=== PATIENT | male | born 1955 | race Caucasian/White ===

== ENCOUNTER → 2023-12-27 08:56 | Outpatient (REF) | payer BC, SELFPAY ==
[2023-12-27 12:21] LABS: ALT (SGPT) 22 U/L (0-50); AST (SGOT) 20 U/L (17-59); Albumin 4.2 g/dl (3.5-5.0); Alkaline Phosphatase 96 U/L (38-126); Blood Urea Nitrogen 32 mg/dl (9-20); Calcium 9.6 mg/dl (8.4-10.2); Carbon Dioxide 24 mmol/L (22-30); Chloride 105 mmol/L (98-107); Glucose 172 mg/dl (70-99); HDL Cholesterol 37 mg/dl; Sodium 137 mmol/L (135-145); Total Bilirubin 1.1 mg/dl (0.2-1.3); Total Cholesterol 202 mg/dl (50-199); Total Protein 7.2 g/dl (6.3-8.2); eGFR 46.06
[2023-12-27 12:22] LABS: LDL Cholesterol, Calculated 62 mg/dl; Triglyceride 517 mg/dl (10-149); Very Low Density Lipoprotein 103 mg/dl (0-30)
[2023-12-27 12:23] LABS: Glycohemoglobin (HgbA1c) 7.8 % (4.0-5.6)
[2023-12-27 12:58] LABS: Microalbumin, Random Urine 7.5 mg/dl (0.6-1.7); Microalbumin/creatinine Ratio 92.7 mg/g
[2023-12-27 13:01] LABS: LDL Cholesterol, Direct 64 mg/dl
== END ==
LOC: HWLAB 08:56
PROVIDERS: ATTENDING PHYSICIAN Family Medicine
DX: I10 Essential (primary) hypertension (principal); E11.22 Type 2 diabetes mellitus with diabetic chronic kidney disease; E78.00 Pure hypercholesterolemia, unspecified
CPT/HCPCS: 36415; 80053; 80061; 82043; 82570; 83036; 83721

== ENCOUNTER → 2024-01-23 06:48 | Outpatient (REF) | payer BC, SELFPAY | LOC: MRI 06:48 | PROVIDERS: ATTENDING PHYSICIAN Physician Assistant Surgical; FAMILY PHYSICIAN Family Medicine | DX: M25.552 Pain in left hip (principal); M25.562 Pain in left knee | CPT/HCPCS: 73721 ==

== ENCOUNTER → 2024-01-24 06:33 | Outpatient (REF) | payer BC, SELFPAY | LOC: MRI 06:33 | PROVIDERS: ATTENDING PHYSICIAN Physician Assistant Surgical; FAMILY PHYSICIAN Family Medicine | DX: M25.552 Pain in left hip (principal); M25.562 Pain in left knee | CPT/HCPCS: 73721 ==

== ENCOUNTER 2024-03-16 09:30 | Day surgery (SDC) | payer BC, SELFPAY ==
--- NOTE | 2024-03-05 12:01 | CM ---
Patient is scheduled for an elective L TKR on 03/16/24. Spoke with patient's prior to surgery via telephone. Patient has had a R THR (in 2014), R TKR (in 2017) and L THR (2018) at . Reintroduced role of Orthopedic Navigator. Patient and his
live in a one story home. There are three steps to enter. He currently functions independently and uses a rolling walker. He also has a cane, raised toilet seat and hip kit. He has had VN services through [facility] and has been to for outpatient
PT. PCP is Cinthia Lyles.
Discussed orthopedic program and post surgical plans. Reviewed anticipated length of stay and goal for patient to return home at discharge. Reviewed VN services and outpatient PT. She is in agreement with tentative plan and states that patient will
go directly to outpatient PT at . She will be home with patient for two days.
Patient will complete online education.
Plan: Orthopedic Navigator will remain available to assist with the care of patient and will reassess discharge needs after surgery.
[2024-03-10 07:01] VITALS: BMI 32.5
[2024-03-10 09:12] LABS: Hematocrit 45.2 % (39.0-52.0); Hemoglobin 15.4 g/dL (13.0-18.0); Mean Corp Hgb Conc. 34.1 g/dL (33.0-37.0); Mean Corpuscular Hgb 30.5 pg (27.0-31.0); Mean Corpuscular Volume 89.5 fL (80.0-94.0); Mean Platelet Volume 10.9 fL (7.4-10.4); Platelet Count 246 10^3/uL (130-400); Red Blood Cell Count 5.05 10^6/uL (4.70-6.10); Red Cell Dist. Width 13.4 % (11.5-14.5); White Blood Cell Count 6.6 10^3/uL (4.8-10.8)
[2024-03-10 09:43] LABS: ALT (SGPT) 19 U/L (0-50); AST (SGOT) 21 U/L (17-59); Albumin 4.4 g/dl (3.5-5.0); Alkaline Phosphatase 82 U/L (38-126); Blood Urea Nitrogen 27 mg/dl (9-20); Calcium 9.9 mg/dl (8.4-10.2); Carbon Dioxide 24 mmol/L (22-30); Chloride 105 mmol/L (98-107); Estimated Creatinine Clearance 55 ml/min; Glucose 185 mg/dl (70-99); Potassium 4.7 mmol/L (3.5-5.1); Sodium 138 mmol/L (135-145); Total Bilirubin 1.4 mg/dl (0.2-1.3); Total Protein 7.4 g/dl (6.3-8.2); eGFR 49.77
[2024-03-10 12:23] LABS: Glycohemoglobin (HgbA1c) 8.2 % (4.0-5.6)
[2024-03-11 08:20] VITALS: BMI 32.5
--- NOTE | 2024-03-11 11:37 | W.PREADMORTH ---
Ortho Preadmission Testing
-
Pt with pre-op A1c of 8.2. Known h/o NIDDM for which he takes Jardiance and Metformin.
Last A1c 7.8 in late December 2023.
Discussed elevated A1c with patient today through phone. He reports he has been compliant with his medications.
He admits his diet has not been ideal, especially over the last couple of days.
He reports to eating pasta 'almost every night this week' and to drinking more soda as of recently.
A strict carb controlled diet was advised sanjuanita-operatively to ensure adequate wound healing and infection prevention.
Examples of low carb foods were explained in detail to the patient.
I did advise he monitor his blood sugar readings at home before meals and before bedtime.
He reports that he does not have a current glucometer but one was ordered for him recently per his PCP, Dr. Cinthia Lyles.
Dr. Lyles also notified of his A1c result for further medical management.
We will still proceed to the OR as planned.
Cefadroxil to be prescribed upon d/c for joint prophylaxis.
[2024-03-16] VITALS (14 sets, daily range): BP systolic 84–155; BP diastolic 64–92; PULSE 72; O2SAT 96
[2024-03-16 09:20] LABS: Glucose - Point of Care 162 mg/dl (70-99)
[2024-03-16] MEDS: NORMOSOL-R 1000 IV ×2 (09:37→15:02)
[2024-03-16] MEDS: CELEBREX 200 MG PO (09:38)
[2024-03-16] MEDS: TYLENOL 650 MG PO (09:38)
[2024-03-16] MEDS: VANCOCIN 300 MG IV (10:47)
[2024-03-16] MEDS: VANCOCIN 300 ML IV (10:47)
[2024-03-16 11:21] LABS: Glucose - Point of Care 136 mg/dl (70-99)
[2024-03-16 14:06] LABS: Glucose - Point of Care 149 mg/dl (70-99)
--- NOTE | 2024-03-16 14:20 | W.PN.UPDATE ---
Update Note
Progress Note Update
L knee OA s/p L TKA w/ Dr Merrill 03/16/24
- s/p R JONATHAN, 2014, R TKA, 2017, and L JONATHAN, 2018, by Dr. Merrill
DVT prophylaxis - ASA, b/l venous foot pumps
HTN - + parameters - monitor BP
Childhood asthma and RLL pulmonary nodule, likely benign - monitor O2
- IS
Chronic kidney disease stage 3 - minimize nephrotoxins as able
Xsm-qtsugsn-urquzfcgl diabetes, A1c 8.2 - monitor BS
- Resume home meds
- Add SSI AC during admission
- Cefadroxil upon d/c
GERD - add daily Protonix
MRSA positive nasal swab pre-operatively - will add IV Vanco in addition to IV Ancef for joint prophylaxis
- Will advise he continue nasal Mupirocin for 2 weeks post-op as incision heals
Hyperlipidemia
Fatty liver disease
Scoliosis
Lumbosacral degenerative disc disease
Ivzc-Jjvzh-Samwukq disease
Glaucoma
Mild hyperbilirubinemia
Obesity, BMI 32.5
Remote history of tobacco abuse
[2024-03-16] MEDS: NORCO 5/325 1 TABLET PO ×2 (14:46→19:52)
--- NOTE | 2024-03-16 15:58 | PTCARENOTE ---
Patient admitted post left knee replacement.The patient is alert and rates his pain at a o out of 10.Neurovascular assessment is within normal limits and ongoing.The Aquacell dressing is dry and intact without drainage.The patient is in his bed with
the call kaminski in reach.
[2024-03-16 16:31] LABS: Glucose - Point of Care 186 mg/dl (70-99)
[2024-03-16] MEDS: LIDOCAINE 4% PATCH 2 PATCH TOPICAL (17:42)
[2024-03-16] MEDS: NOVOLOG FLEXPEN-MODERATE RESISTANCE 1 UNITS SC (17:43)
[2024-03-16] MEDS: PROTONIX 40 MG PO (17:44)
[2024-03-16] MEDS: LIPITOR 20 MG PO (17:44)
[2024-03-16] MEDS: ASPIRIN 325 MG PO (17:44)
[2024-03-16] MEDS: GLUCOPHAGE 1000 MG PO (17:44)
[2024-03-16] MEDS: TRAVATAN Z 1 DROP LEFT EYE (17:46)
[2024-03-16] MEDS: JARDIANCE 25 MG PO (19:53)
[2024-03-16] MEDS: ANCEF 5 IV (20:03)
[2024-03-16] MEDS: COLACE 100 MG PO (20:04)
[2024-03-16] MEDS: SENOKOT 17.1999999999999993 MG PO (20:04)
[2024-03-16] MEDS: MAALOX 30 ML PO (20:04)
[2024-03-16] MEDS: BACTROBAN 2% OINTMENT 1 APPLIC NASAL (20:05)
[2024-03-16] MEDS: VALIUM 5 MG PO (21:29)
[2024-03-16] MEDS: MILK OF MAGNESIA 30 ML PO (21:29)
[2024-03-16] MEDS: VANCOCIN 200 IV (21:31)
[2024-03-16 21:42] LABS: Glucose - Point of Care 221 mg/dl (70-99)
[2024-03-17] MEDS: NORCO 5/325 1 TABLET PO (00:01)
[2024-03-17 03:24] VITALS: BP 125/71
[2024-03-17] MEDS: ANCEF 5 IV (03:38)
[2024-03-17] MEDS: NORCO 5/325 2 TABLET PO ×2 (05:25→09:46)
[2024-03-17 07:25] VITALS: BP 131/73
[2024-03-17] MEDS: GLUCOPHAGE 1000 MG PO (07:57)
[2024-03-17] MEDS: JARDIANCE 25 MG PO (07:57)
[2024-03-17] MEDS: ASPIRIN 325 MG PO (07:58)
[2024-03-17] MEDS: COLACE 100 MG PO (07:58)
[2024-03-17] MEDS: LIDOCAINE 4% PATCH 2 PATCH TOPICAL (07:58)
[2024-03-17] MEDS: SENOKOT 17.1999999999999993 MG PO (07:58)
[2024-03-17] MEDS: PROTONIX 40 MG PO (07:58)
[2024-03-17 07:59] LABS: Glucose - Point of Care 192 mg/dl (70-99)
[2024-03-17] MEDS: BACTROBAN 2% OINTMENT 1 APPLIC NASAL (07:59)
[2024-03-17] MEDS: NOVOLOG FLEXPEN-MODERATE RESISTANCE 1 UNITS SC (08:00)
--- NOTE | 2024-03-17 08:39 | CM ---
Reviewed chart and held rounds with PT, OT and nursing. Patient admitted as planned for elective L TKR. Met with patient at bedside. Confirmed information previously obtained for assessment. Also discussed discharge plans. The plan is for patient
to return home at discharge. He will have support from his when he goes home. Patient will go directly to outpatient PT and will go to [facility]. He has an appointment scheduled for Saturday, 03/18.
Patient has all needed DME at home but states that he needs a new cane; will discuss with patient's need for new cane.
Patient will use [facility] pharmacy for discharge prescriptions.
--- NOTE | 2024-03-17 09:27 | W.PN.ORTHO ---
Today's Communication / Plan
-
Await OT recs. Did well w/ PT today.
D/c later today if remaining clinically stable.
Assessment
.
Distal Motor Intact: Yes
Dressing:
Clean, dry and intact.
Assessment:
L knee OA s/p L TKA w/ Dr Merrill 03/16/24
- s/p R JONATHAN, 2014, R TKA, 2017, and L JONATHAN, 2018, by Dr. Merrill
DVT prophylaxis - ASA, b/l venous foot pumps
HTN - + parameters - BPs overall stable
Childhood asthma and RLL pulmonary nodule, likely benign - O2 stable on RA
- IS
Chronic kidney disease stage 3 - continue to minimize nephrotoxins as able
Tbx-qidfryf-tgzyhoelp diabetes, A1c 8.2 - BS readings initially elevated in the setting of surgical stress, IV steroids in OR, holding of AM diabetic meds DOS
- Minimal SSI needed during admission
- BS readings expected to improve further w/ resumption of home meds and continuation of diabetic, carb controlled diet
- Cefadroxil upon d/c
GERD - continue daily Protonix
MRSA positive nasal swab pre-operatively - s/p IV Vanco in addition to IV Ancef for joint prophylaxis
- Will advise he continue nasal Mupirocin for 2 weeks post-op as incision heals
Hyperlipidemia
Fatty liver disease
Scoliosis
Lumbosacral degenerative disc disease
Iovo-Elped-Lmtpkaj disease
Glaucoma
Mild hyperbilirubinemia
Obesity, BMI 32.5
Remote history of tobacco abuse
Plan
.
Surgery / Date: L TKA w/ Dr Merrill 03/16/24
DVT Prophylaxis: Aspirin
Activity:
Out of bed.
PT/OT
Discharge Plan: Home w/ Outpatient PT
Subjective
.
.:
Patient resting comfortably this AM.
Walking w/ PCT during assessment.
Denies any new significant complaints.
Eager for potential d/c today.
Vital Signs and Labs
.
Vital Signs and Labs:
Lab Results
03/10/24 06:55
03/10/24 06:55
Temp Pulse Resp BP Pulse Ox
97.6 F 83 18 131/73 97
03/17/24 07:25 03/17/24 07:25 03/17/24 07:25 03/17/24 07:25 03/17/24 07:25
Non-invasive Hgb result: 14.9
Physical Exam
-
HEENT: No pallor, cyanosis, or jaundice. Throat clear.
NECK: Supple. No JVD.
RESPIRATORY: Lungs clear to auscultation.
CVS: S1, S2 normal. RRR.�
ABDOMEN: Soft, non-tender. No distension. Obese.
EXTREMITIES: Strength equal, no calf pain with palpation/dorsiflexion. Calves soft.
FAMILY SERVICE AIDE: AOx3. No focal deficits. colorist formulator grossly intact
[2024-03-17 09:30] VITALS: BP 166/84
--- NOTE | 2024-03-17 09:38 | W.DS.TRANS ---
DC Summary - Software Tools Engineer
-
Discharge Instructions:
Discharge Diagnosis/Procedures L knee OA s/p L TKA w/ Dr Merrill 03/16/24
Diet Diabetic, Carb Controlled
Activity As tolerated,With Walker
Driving Restrictions Not until seen by your Dr
Bathing Restrictions OK to Shower
Other Services PT
Wound Care Dressing to be removed 1 week post-surgery.
[place] to be removed at 2 week follow-up
appointment with surgeon's office.
Instructions:
Stand-Alone Forms: Total Hip/Knee Replacement D/C
Changes to Home Medications: Yes
Discharge Medications:
DC Medications w/original date entered in [employer]
atorvastatin 20 mg tablet 20 mg PO QPM 09/16/17
travoprost 0.004 % eye drops 1 drp LEFT EYE QPM 09/16/17
albuterol sulfate 90 mcg/actuation aerosol inhaler 2 inh inhalation Q6HPRN PRN Congestion 01/30/23
empagliflozin 25 mg tablet (Jardiance) 25 mg PO DAILY 03/09/24
metformin 500 mg tablet 1,000 mg PO BID 03/09/24
Saccharomyces boulardii 250 mg capsule (Florastor) 250 mg PO DAILY #7 caps 03/17/24
acetaminophen 325 mg tablet 650 mg (2 x 325 mg) PO Q4H PRN mild pain #60 tabs 03/17/24
aspirin 325 mg tablet 325 mg PO DAILY #30 tabs 03/17/24
cefadroxil 500 mg capsule 500 mg PO DAILY #7 caps 03/17/24
diazepam 5 mg tablet 5 mg PO HS PRN muscle spasms/insomnia #10 tabs 03/17/24
docusate sodium 100 mg capsule 100 mg PO BID #30 caps 03/17/24
hydrocodone 5 mg-acetaminophen 325 mg tablet 1 - 2 tab PO Q4H PRN moderate-severe pain #40 tabs 03/17/24
lidocaine 4 % topical patch 2 patch topical DAILY #30 ea 03/17/24
losartan 100 mg tablet 100 mg PO QPM #0 tabs 03/17/24
magnesium hydroxide 400 mg/5 mL oral suspension 30 ml PO HS #355 mL 03/17/24
mupirocin 2 % topical ointment 1 applic intranasal BID #1 tube 03/17/24
ondansetron HCl 4 mg tablet 4 mg PO Q6H PRN nausea and vomiting #30 tabs 03/17/24
pantoprazole 40 mg tablet,delayed release 40 mg PO DAILY #30 tabs 03/17/24
sennosides 8.6 mg tablet (Senna Laxative) 17.2 mg (2 x 8.6 mg) PO BID #30 tabs 03/17/24
Home Medication Changes
Saccharomyces boulardii 250 mg capsule (Florastor) 250 mg PO DAILY #7 caps 03/17/24
acetaminophen 325 mg tablet 650 mg (2 x 325 mg) PO Q4H PRN mild pain #60 tabs 03/17/24
aspirin 325 mg tablet 325 mg PO DAILY #30 tabs 03/17/24
cefadroxil 500 mg capsule 500 mg PO DAILY #7 caps 03/17/24
diazepam 5 mg tablet 5 mg PO HS PRN muscle spasms/insomnia #10 tabs 03/17/24
docusate sodium 100 mg capsule 100 mg PO BID #30 caps 03/17/24
hydrocodone 5 mg-acetaminophen 325 mg tablet 1 - 2 tab PO Q4H PRN moderate-severe pain #40 tabs 03/17/24
lidocaine 4 % topical patch 2 patch topical DAILY #30 ea 03/17/24
magnesium hydroxide 400 mg/5 mL oral suspension 30 ml PO HS #355 mL 03/17/24
ondansetron HCl 4 mg tablet 4 mg PO Q6H PRN nausea and vomiting #30 tabs 03/17/24
pantoprazole 40 mg tablet,delayed release 40 mg PO DAILY #30 tabs 03/17/24
sennosides 8.6 mg tablet (Senna Laxative) 17.2 mg (2 x 8.6 mg) PO BID #30 tabs 03/17/24
Pending Results: No
[2024-03-17 10:31] VITALS: BP 142/72
== END 2024-03-17 11:30 | disposition home or self-care (01) ==
LOC: SDS 09:30
PROVIDERS: ATTENDING PHYSICIAN Specialist; FAMILY PHYSICIAN Family Medicine; OTHER PHYSICIAN Physician Assistant
DX: M17.11 Unilateral primary osteoarthritis, right knee (principal); Z86.14 Personal history of Methicillin resistant Staphylococcus aureus infection
CPT/HCPCS: 27447; 36415; 73560; 80053; 82962; 83036; 85027; 87070; 87147; 93005; 97162; 97166; 97530; 97535; C1713; C1776

== ENCOUNTER 2024-04-03 10:18 | Outpatient (RCR) | payer BC, SELFPAY | END 2024-04-03 23:59 | disposition home or self-care (01) | LOC: RPT 10:18 | PROVIDERS: ATTENDING PHYSICIAN Specialist; FAMILY PHYSICIAN Family Medicine | DX: Z47.1 Aftercare following joint replacement surgery (principal); M25.562 Pain in left knee; Z73.6 Limitation of activities due to disability; Z96.652 Presence of left artificial knee joint | CPT/HCPCS: 97010; 97110; 97162 ==

== ENCOUNTER → 2024-05-01 07:40 | Outpatient (REF) | payer BC, SELFPAY ==
[2024-05-01 10:00] LABS: ALT (SGPT) 17 U/L (0-50); AST (SGOT) 19 U/L (17-59); Albumin 4.4 g/dl (3.5-5.0); Alkaline Phosphatase 89 U/L (38-126); Blood Urea Nitrogen 28 mg/dl (9-20); Calcium 9.9 mg/dl (8.4-10.2); Carbon Dioxide 26 mmol/L (22-30); Chloride 108 mmol/L (98-107); Glucose 156 mg/dl (70-99); HDL Cholesterol 37 mg/dl; LDL Cholesterol, Calculated 94 mg/dl; Potassium 4.7 mmol/L (3.5-5.1); Sodium 140 mmol/L (135-145); Total Cholesterol 198 mg/dl (50-199); Total Protein 7.2 g/dl (6.3-8.2); Triglyceride 335 mg/dl (10-149); Very Low Density Lipoprotein 67 mg/dl (0-30); eGFR 53.74
[2024-05-01 10:18] LABS: Microalbumin, Random Urine 6.3 mg/dl (0.6-1.7); Microalbumin/creatinine Ratio 67.3 mg/g
[2024-05-01 12:03] LABS: Glycohemoglobin (HgbA1c) 6.3 % (4.0-5.6)
== END ==
LOC: HWLAB 07:40
PROVIDERS: ATTENDING PHYSICIAN Family Medicine
DX: I10 Essential (primary) hypertension (principal); E11.22 Type 2 diabetes mellitus with diabetic chronic kidney disease; N18.31 Chronic kidney disease, stage 3a
CPT/HCPCS: 36415; 80053; 80061; 82043; 82570; 83036

== ENCOUNTER 2024-05-05 08:23 | Outpatient (RCR) | payer BC, SELFPAY | END 2024-05-05 23:59 | disposition home or self-care (01) | LOC: RPT 08:23 | PROVIDERS: ATTENDING PHYSICIAN Specialist; FAMILY PHYSICIAN Family Medicine | DX: Z47.1 Aftercare following joint replacement surgery (principal); Z96.652 Presence of left artificial knee joint; Z73.6 Limitation of activities due to disability | CPT/HCPCS: 97010; 97110; 97112 ==

== ENCOUNTER 2024-06-03 11:55 | Outpatient (RCR) | payer BC, SELFPAY | END 2024-06-03 13:05 | disposition home or self-care (01) | LOC: RPT 11:55 | PROVIDERS: ATTENDING PHYSICIAN Specialist; FAMILY PHYSICIAN Family Medicine | DX: Z47.1 Aftercare following joint replacement surgery (principal); M25.562 Pain in left knee; Z73.6 Limitation of activities due to disability; Z96.652 Presence of left artificial knee joint | CPT/HCPCS: 97010; 97110; 97112 ==

== ENCOUNTER → 2024-09-09 10:23 | Outpatient (REF) | payer BC, SELFPAY ==
[2024-09-09 12:38] LABS: ALT (SGPT) 23 U/L (0-50); AST (SGOT) 26 U/L (17-59); Albumin 4.6 g/dl (3.5-5.0); Alkaline Phosphatase 111 U/L (38-126); Blood Urea Nitrogen 29 mg/dl (9-20); Calcium 9.4 mg/dl (8.4-10.2); Carbon Dioxide 24 mmol/L (22-30); Chloride 105 mmol/L (98-107); Glucose 148 mg/dl (70-99); Glycohemoglobin (HgbA1c) 7.6 % (4.0-5.6); HDL Cholesterol 39 mg/dl; Potassium 5.1 mmol/L (3.5-5.1); Sodium 140 mmol/L (135-145); Total Cholesterol 237 mg/dl (50-199); Total Protein 7.7 g/dl (6.3-8.2); eGFR 49.47
[2024-09-09 12:51] LABS: Triglyceride 672 mg/dl (10-149)
[2024-09-09 13:14] LABS: LDL Cholesterol, Direct 55 mg/dl
[2024-09-09 16:48] LABS: Microalbumin, Random Urine 6.8 mg/dl (0.6-1.7); Microalbumin/creatinine Ratio 93.2 mg/g
== END ==
LOC: HWLAB 10:23
PROVIDERS: ATTENDING PHYSICIAN Family Medicine
DX: E11.22 Type 2 diabetes mellitus with diabetic chronic kidney disease (principal); I10 Essential (primary) hypertension; N18.31 Chronic kidney disease, stage 3a; E78.00 Pure hypercholesterolemia, unspecified
CPT/HCPCS: 36415; 80053; 80061; 82043; 82570; 83036; 83721

== ENCOUNTER → 2025-03-09 08:36 | Outpatient (REF) | payer MEDICARE, OTHER, SELFPAY ==
[2025-03-09 13:21] LABS: ALT (SGPT) 23 U/L (0-50); AST (SGOT) 21 U/L (17-59); Albumin 4.5 g/dl (3.5-5.0); Alkaline Phosphatase 86 U/L (38-126); Blood Urea Nitrogen 29 mg/dl (9-20); Calcium 9.3 mg/dl (8.4-10.2); Carbon Dioxide 18 mmol/L (22-30); Chloride 114 mmol/L (98-107); Glucose 153 mg/dl (70-99); Potassium 5.1 mmol/L (3.5-5.1); Sodium 140 mmol/L (135-145); Total Bilirubin 1.3 mg/dl (0.2-1.3); Total Protein 7.3 g/dl (6.3-8.2); eGFR 49.47
[2025-03-09 14:26] LABS: Glycohemoglobin (HgbA1c) 7.4 % (4.0-5.6)
== END ==
LOC: HWLAB 08:36
PROVIDERS: ATTENDING PHYSICIAN Family Medicine
DX: E11.22 Type 2 diabetes mellitus with diabetic chronic kidney disease (principal); I10 Essential (primary) hypertension; E78.00 Pure hypercholesterolemia, unspecified; N18.31 Chronic kidney disease, stage 3a
CPT/HCPCS: 36415; 80053; 83036

== ENCOUNTER → 2025-06-01 08:28 | Outpatient (REF) | payer MEDICARE, OTHER, SELFPAY ==
[2025-06-01 10:27] LABS: Blood Urea Nitrogen 29 mg/dl (9-20); Calcium 10.0 mg/dl (8.4-10.2); Carbon Dioxide 23 mmol/L (22-30); Chloride 109 mmol/L (98-107); Glucose 122 mg/dl (70-99); Potassium 4.9 mmol/L (3.5-5.1); Sodium 139 mmol/L (135-145); eGFR 49.16
[2025-06-01 10:33] LABS: Glycohemoglobin (HgbA1c) 6.9 % (4.0-5.6)
== END ==
LOC: HWLAB 08:28
PROVIDERS: ATTENDING PHYSICIAN Family Medicine
DX: E11.22 Type 2 diabetes mellitus with diabetic chronic kidney disease (principal)
CPT/HCPCS: 36415; 80048; 83036